=== PATIENT | male | born 2000 ===

== ENCOUNTER 2023-07-02 20:19 | Emergency (ER) | payer OTHER, SELFPAY ==
[2023-07-02 20:40] VITALS: BP 125/50; PULSE 54; RESP 18; TEMP 36.6; O2SAT 98; BMI 24.2
== END 2023-07-03 00:21 | disposition left against medical advice (07) ==
PROVIDERS: Emergency Provider Emergency Medicine
DX: H57.13 Ocular pain, bilateral (principal)
CPT/HCPCS: 99281

== ENCOUNTER 2024-06-20 02:54 | Emergency (ER) | payer MEDICAID, SELFPAY ==
--- NOTE | 2024-06-20 | ECG_ITS ---
Test Reason : CP Blood Pressure : */* mmHG Vent. Rate : 49 BPM Atrial Rate : 49 BPM P-R Int : 154 ms QRS Dur : 92 ms QT Int : 414 ms P-R-T Axes : 31 49 15 degrees QTcB Int : 373 ms Sinus bradycardia Otherwise normal ECG No previous ECGs available Referred By: Generic ED Physician Electronically Signed By: MATTHEW WALDROP
--- NOTE | ~2024-06-20 | XR_ITS ---
CLINICAL HISTORY: cp 2 view chest x-ray. Comparison: None Findings: The lungs appear clear. There is no consolidation, effusion, or pneumothorax. Cardiomediastinal silhouette is within normal limits. IMPRESSION: No acute cardiopulmonary abnormality. This document has been electronically signed by: Twan Simmons MD on 06/20/2024 04:17:50
[2024-06-20 03:03] VITALS: BP 128/77; PULSE 48; RESP 16; TEMP 36.7; O2SAT 99; BMI 25.1
[2024-06-20 03:57] LABS: MANUAL DIFF FLAG NO
[2024-06-20 03:58] LABS: Basophils Percent Auto 0.2 % (0-2); Eosinophils Absolute Auto 0.1 X10*3/uL (0.0-0.4); Eosinophils Percent Auto 1.2 % (0-4); Hematocrit 43.5 % (42.0-52.0); Hemoglobin 15.1 g/dl (14.0-18.0); Imm Gran Abs Auto 0.02 X10*3/uL (0.00-0.03); Imm Gran Pct Auto 0.2 % (0.0-0.4); Lymphocytes Absolute Auto 1.5 X10*3/uL (1.2-4.9); Lymphocytes Percent Auto 16.8 % (20-40); Mean Corpuscular HGB Conc 34.7 g/dl (31.0-36.0); Mean Corpuscular Hemoglobin 29.8 pg (27.0-33.0); Mean Corpuscular Volume 85.8 fL (80.0-98.0); Mean Platelet Volume 10.2 fL (9.4-12.4); Monocytes Absolute Auto 0.5 X10*3/uL (0.1-1.2); Monocytes Percent Auto 5.6 % (2-11); Neutrophils Absolute Auto 6.8 x10*3/uL (2.0-8.3); Platelet Count 228 X10*3/uL (160-400); Red Blood Count 5.07 X10*6/uL (4.60-5.80); Red Cell Distribution Width 12.5 % (11.0-16.0)
[2024-06-20 04:16] LABS: Alanine Aminotransferase 31 U/L (0-40); Albumin Level 4.5 g/dL (3.5-5.0); Alkaline Phosphatase 88 U/L (39-117); Anion Gap 14 (12-20); Aspartate Amino Transferase 26 U/L (5-37); Bilirubin Total 0.5 mg/dL (0.0-1.0); Blood Urea Nitrogen 13 mg/dL (9-16); Calcium 9.5 mg/dL (8.4-10.2); Carbon Dioxide 25 mmol/L (22-29); Chloride 105 mmol/L (96-108); Creatinine Clr Calc Pharmacy 107.7; Estimated Glomerular Filt Rate > 60; Glucose Random 107 mg/dL (60-115); Magnesium 1.9 mg/dL (1.6-2.6); Potassium 3.9 mmol/L (3.3-5.1); Sodium 140 mmol/L (135-145); Total Protein 7.3 g/dL (6.5-8.0)
[2024-06-20 04:23] LABS: Troponin-I High Sensitivity 10.1 ng/L (<3.5-35.0)
[2024-06-20 04:34] LABS: Influenza A PCR NEGATIVE (Negative); Influenza B PCR NEGATIVE (Negative); Resp Syncy Virus RNA Qual PCR NEGATIVE (Negative); SARS COV2 PCR INHOUSE NEGATIVE (Negative)
--- NOTE | 2024-06-20 05:18 | ED_ITS ---
HPI - General Adult General Chief complaint: Nausea/Vomiting/Diarrhea Stated complaint: headache Time Seen by Provider: 06/20/24 05:18 History of Present Illness ED Provider: David JOHNSON narrative: The patient is a 24-year-old who was ordinarily in good health. This morning he woke up from sleep at around 01:00 with a headache. This was primarily on the left side of his head. It was associated with a sense of dizziness and nausea and he vomited 3 times. He also thinks that he was somewhat photophobic and photophobic. His girlfriend drove him to the emergency room. While waiting to be seen his headache has almost entirely resolved. He has no sense of neck pain or neck stiffness. He does not feel that he had any neck pain or neck stiffness earlier. No fever, sweats, chills. No cough or sputum. The patient also says that he has chest pain but he says that he often has chest pain and he has been worried about his chest pains for some time. Related Data Previous Rx's ?Medication ?Instructions ?Recorded acetaminophen 500 mg capsule 1,000 mg (2 x 500 mg) PO Q8H PRN 06/20/24 fever or pain #14 caps ibuprofen 400 mg tablet 400 mg PO Q6H PRN pain #14 tabs 06/20/24 Allergies Allergy/AdvReac Type Severity Reaction Status Date / Time No Known Allergies Allergy Verified 06/20/24 03:06 Review of Systems 2 Review of Systems: Yes all other systems are reviewed and are negative PMFSH Social History Social History Smoked in Last 30 Days: No Use of substances other than those prescribed or required for medical reasons: No Advance Directives: No Advance Directives Information Provided: Yes Do you have a plan to hurt others: No Plan Physical Exam ED Vital Signs: Vital Signs - 24 hr 06/20/24 03:03 06/20/24 06:01 Temperature 98.1 F 98.0 F Pulse Rate 48 L 65 Respiratory Rate 16 20 Blood Pressure 128/77 103/64 Pulse Oximetry 99 98 Oxygen Delivery Method Room Air Room Air BMI result Body Mass Index 25.1 Const Other: The patient is at 24-year-old male who looks as though he is ordinarily in good health. He was resting on the stretcher and seemed comfortable. It did not look unwell in any way. He was pleasant and cooperative. Cheerful. Nontoxic. HENMT Other: Face is symmetrical, mucous membranes moist, pharynx is normal. Eyes Other: Pupils are round, equal, reactive to light, extraocular movements are intact, funduscopic exam is unremarkable, conjunctivae clear bilaterally Neck Other: no adenopathy. The neck is completely supple. Resp Effort & Inspection: normal respiratory effort Auscultation: clear to auscultation bilaterally Cardio Rate: regular rate Rhythm: regular rhythm Heart sounds: S1 normal heart sound present and S2 normal heart sound present GI Other: The abdomen is soft and nontender Skin Other: skin is dry and unremarkable Neuro Other: the patient is awake and alert with a normal mental status and cheerful demeanor. He seems entirely nontoxic. Cranial nerves are intact. His neck is entirely supple. He he has normal strength and sensation in his extremities. He has normal gait and normal coordination. He seems entirely neurologically intact. Extrem Other: No peripheral edema Medications Administered Discontinued Medications Generic Name Dose Route Start Last Admin Trade Name Freq PRN Reason Stop Dose Admin Acetaminophen 975 mg 06/20/24 05:34 06/20/24 05:40 Acetaminophen 325 Mg Tablet PO 06/20/24 05:35 975 mg ONCE ONE Administration Ibuprofen 400 mg 06/20/24 05:34 06/20/24 05:40 Ibuprofen 400 Mg Tablet PO 06/20/24 05:35 400 mg ONCE ONE Administration Medical Decision Making Medical Decision Making [facility] Narrative: the patient is a well-looking a ordinarily healthy 24-year-old who woke with a headache today that was unilateral and associated with nausea and photophobia and phonophobia. His symptoms have improved spontaneously. He has also been having some chest pain. He is bradycardic but he has a normal EKG and chest x- ray. Overall I think the patient looks quite well. Perhaps he had a migraine headache. I do not see an indication for neuro imaging. I think he may be discharged to follow-up with PCP or return to the ER if worse. Lab Data 06/20/24 03:53 06/20/24 03:53 Labs: Lab Results 06/20/24 Range/Units 03:53 WBC 9.0 (4.8-10.8) X10*3/uL RBC 5.07 (4.60-5.80) X10*6/uL Hgb 15.1 (14.0-18.0) g/dl Hct 43.5 (42.0-52.0) % MCV 85.8 (80.0-98.0) fL MCH 29.8 (27.0-33.0) pg MCHC 34.7 (31.0-36.0) g/dl RDW 12.5 (11.0-16.0) % Plt Count 228 (160-400) X10*3/uL MPV 10.2 (9.4-12.4) fL Immature Gran % (Auto) 0.2 (0.0-0.4) % Neut % (Auto) 76.0 H (45-73) % Lymph % (Auto) 16.8 L (20-40) % [place] % (Auto) 5.6 (2-11) % Eos % (Auto) 1.2 (0-4) % Baso % (Auto) 0.2 (0-2) % Lymph # (Auto) 1.5 (1.2-4.9) X10*3/uL [place] # (Auto) 0.5 (0.1-1.2) X10*3/uL Eos # (Auto) 0.1 (0.0-0.4) X10*3/uL Baso # (Auto) 0.0 (0.0-0.2) X10*3/uL Abs Immat Gran (auto) 0.02 (0.00-0.03) X10*3/uL Absolute Neuts (auto) 6.8 (2.0-8.3) x10*3/uL Absolute Nucleated RBC 0.000 (0.0-0.012) X10*3/uL Nucleated RBC % (auto) 0.0 (0.0-0.2) /100WBC Sodium 140 (135-145) mmol/L Potassium 3.9 (3.3-5.1) mmol/L Chloride 105 (96-108) mmol/L Carbon Dioxide 25 (22-29) mmol/L Anion Gap 14 (12-20) BUN 13 (9-16) mg/dL Creatinine 0.98 (0.5-1.4) mg/dL Estim Creat Clear Calc 107.7 Estimated GFR > 60 Random Glucose 107 (60-115) mg/dL Calcium 9.5 (8.4-10.2) mg/dL Magnesium 1.9 (1.6-2.6) mg/dL Total Bilirubin 0.5 (0.0-1.0) mg/dL AST 26 (5-37) U/L ALT 31 (0-40) U/L Alkaline Phosphatase 88 (39-117) U/L Troponin I High Sens 10.1 (<3.5-35.0) ng/L Total Protein 7.3 (6.5-8.0) g/dL Albumin 4.5 (3.5-5.0) g/dL Influenza Type A (PCR) NEGATIVE (Negative) Influenza Type B (PCR) NEGATIVE (Negative) RSV RNA Qual (PCR) NEGATIVE (Negative) SARS-CoV-2 RNA (RT-PCR) NEGATIVE (Negative) Discharge Plan Discharge Clinical Impression: Headache Patient Disposition: Home, Self-Care Additional Instructions: It is possible that the headache you experienced this morning may have been a migraine headache. If you have ongoing mild symptoms you may use ibuprofen and acetaminophen as needed. Please plan on resting and taking it easy today. Please contact your regular doctor's office for a follow up appointment in the next few weeks. Return to the emergency room if significantly worse. Prescriptions: New ibuprofen 400 mg tablet 400 mg PO Q6H PRN (Reason: pain) Qty: 14 0RF acetaminophen 500 mg capsule 1,000 mg PO Q8H PRN (Reason: fever or pain) Qty: 14 0RF Referrals: [facility] [Provider Group] (headache) Interventions: ED Discharge Assessment Last Done: 06/20/24 06:01 Discharge Date/Time: 06/20/24 06:03 Print Language: Greek
--- NOTE | 2024-06-20 05:35 | PC.NURSE ---
Pt change into hospital attire, labs, EKg completed, Pt placed on bed side monitor.provider into assess pt.
[2024-06-20] MEDS: Acetaminophen 325 MG TABLET 975 MG PO (05:40)
[2024-06-20] MEDS: Ibuprofen 400 MG TABLET PO (05:40)
--- NOTE | 2024-06-20 05:42 | PC.NURSE ---
Pt medicated per mar.
--- NOTE | 2024-06-20 06:00 | PC.NURSE ---
Reviewed discharge instructions with pt, pt verbalized understanding, no sign of distress, pt had a steady gait.
[2024-06-20 06:01] VITALS: BP 103/64; PULSE 65; RESP 20; TEMP 36.7; O2SAT 98
== END 2024-06-20 06:03 | disposition home or self-care (01) ==
PROVIDERS: Emergency Provider Emergency Medicine
DX: R51.9 Headache, unspecified (principal); R07.9 Chest pain, unspecified; R42 Dizziness and giddiness; R11.2 Nausea with vomiting, unspecified; H53.149 Visual discomfort, unspecified; Z03.818 Encounter for observation for suspected exposure to other biological agents ruled out
CPT/HCPCS: 0241U; 36415; 71046; 80053; 83735; 84484; 85025; 93005; 99283; 99285

== ENCOUNTER → 2024-06-20 03:15 | Outpatient (BNV) | payer MEDICAID, SELFPAY | PROVIDERS: Visit Provider Radiology Diagnostic Radiology | DX: R07.9 Chest pain, unspecified (principal) | CPT/HCPCS: 71046 ==

== ENCOUNTER → 2024-06-20 03:44 | Outpatient (BNV) | payer MEDICAID, SELFPAY | PROVIDERS: Emergency Provider Emergency Medicine; Visit Provider Internal Medicine | DX: R00.1 Bradycardia, unspecified (principal) | CPT/HCPCS: 93010 ==